=== PATIENT | male | born 1960 | race American Indian/Alaskan Native ===

== ENCOUNTER 2017-07-03 14:58 | Emergency (ER) | payer MEDICAID, OTHER ==
[2017-07-03 15:14] VITALS: BP 133/79; PULSE 85; RESP 16; TEMP 98.1; O2SAT 99; BMI 30.8
[2017-07-03] MEDS ORDERED: Naproxen 550 mg Tab PO STA (15:38)
[2017-07-03] MEDS ORDERED: Naproxen 550 mg Tab PO ONE (15:42)
--- NOTE | 2017-07-03 16:29 | RAD ---
PROCEDURE: Lumbar spine dated 07/03/2017. HISTORY: Status post fall with pain. COMPARISON: Correlation made with prior radiographs of the lumbar spine 02/21/2014. FINDINGS: BONES: No acute compression fractures no retropulsed fragments. Vertebral bodies exhibit normal stature. There is a mild levo- rotoscoliosis centered at approximately the L2-L3 level slightly increased from prior exam. Vertebral bodies otherwise exhibit normal alignment. Facets normally aligned. 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 DISC SPACES: Mild disc space narrowing seen on the right side at the L1-L2, L2-L3 and to a lesser degree L3-L4 levels in part due to the aforementioned scoliotic deformity. . Mild to moderate disc space narrowing L5-S1 level with endplate eburnation. Small anterolateral osteophyte formation seen at several levels. Facet joints also appear hypertrophic at L5-S1 through the L2-L3 levels in somewhat decreasing order of severity. OTHER FINDINGS: None. IMPRESSION: No acute fractures. Mild multilevel degenerative spondylosis with slight increased of the levo- rotoscoliosis. 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
--- NOTE | 2017-07-03 16:36 | RAD ---
PROCEDURE: Left hip dated 07/03/2017. HISTORY: Status post fall with pain. COMPARISON: Correlation made with concurrent radiographs of the lumbar spine FINDINGS: BONES: No evidence of acute displaced fracture nor dislocation. The osseous structures appear intact. Both femoral heads are appropriately located within the respective acetabula. JOINTS: Minimal spurring along the superolateral margins of the acetabular roofs. Joint spaces appear relatively preserved. SOFT TISSUES: Soft tissues appear grossly unremarkable. OTHER FINDINGS: Roofs. Re- demonstrated is a bony bridge extending from the lateral aspect of the right L5 transverse process extending to the superomedial aspect of the right iliac bone IMPRESSION: No evidence of acute displaced fracture nor dislocation. Consider additional imaging if symptoms persist or occult fracture suspected clinically
--- NOTE | 2017-07-03 16:36 | RAD ---
Indication: Pain status post fall Comparison: Chest x-ray performed 02/21/14 Findings: No acute displaced fracture or dislocation identified. Soft tissues appear unremarkable. Impression: No acute findings identified.
--- NOTE | 2017-07-03 16:47 | C.PDOC ---
History Of Present Illness Pt slipped and lost balance while going up stairs and fell on his left side. Denies LOC or head injury. - HPI Time Seen by Provider: 07/03/17 15:20 Chief Complaint (Nursing): Trauma History Per: Patient Injury Occurred (Timing): Just Before Arrival Location Of Injury: Left: Back (Lower), Hip, Shoulder Severity: Moderate Additional History Per: Prior Records - Fall Fall:Prior To Injury: Slipped Past Medical History Reviewed: Historical Data, Nursing Documentation, Vital Signs Vital Signs: Last Vital Signs Temp 98.1 F 07/03/17 15:14 Pulse 85 07/03/17 15:14 Resp 16 07/03/17 15:14 BP 133/79 07/03/17 15:14 Pulse Ox 99 07/03/17 15:14 - Medical History PMH: No Chronic Diseases Family History: States: Unknown Family Hx - Social History Hx Tobacco Use: No Hx Alcohol Use: No Hx Substance Use: No - Immunization History Hx Tetanus Toxoid Vaccination: No Hx Influenza Vaccination: No Hx Pneumococcal Vaccination: No Review Of Systems Except As Marked, All Systems Reviewed And Found Negative. Constitutional: Negative for: Fever, Weakness Cardiovascular: Negative for: Chest Pain Physical Exam - Physical Exam Appears: Non-toxic, No Acute Distress Skin: Normal Color, Warm, Dry Head: Atraumatic, Normacephalic Eye(s): bilateral: Normal Inspection, PERRL, EOMI Neck: Normal ROM, No Midline Cervical Tenderness, No Step Off Deformity, Supple Chest: Symmetrical, No Deformity Cardiovascular: Rhythm Regular Respiratory: Normal Breath Sounds, No Accessory Muscle Use Gastrointestinal/Abdominal: Soft, No Tenderness Back: No CVA Tenderness, Paraspinal Tenderness (left lower) Extremity: Normal ROM, Tenderness (around left scapula area and left hip area), No Deformity, No Swelling Pulses: Left Radial: Normal Neurological/Psych: Oriented x3, Normal Motor, Normal Sensation ED Course And Treatment O2 Sat by Pulse Oximetry: 99 Pulse Ox Interpretation: Normal - Other Rad LS spine x-rays X-Ray: Viewed By Me, Read By Radiologist Interpretation: IMPRESSION: No acute fractures. Mild multilevel degenerative spondylosis with slight increased of the levo- rotoscoliosis. 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 Left scapula x-rays X-Ray: Viewed By Me, Read By Radiologist Interpretation: Impression: No acute findings identified. Left hip x-rays X-Ray: Viewed By Me, Read By Radiologist Interpretation: IMPRESSION: No evidence of acute displaced fracture nor dislocation. Consider additional imaging if symptoms persist or occult fracture suspected clinically Reassessment Condition: Improved Disposition Counseled Patient/Family Regarding: Studies Performed, Diagnosis, Need For Followup, Rx Given - Disposition Disposition: HOME/ ROUTINE Disposition Time: 16:50 Condition: STABLE Additional Instructions: Follow up with your doctor for further evaluation and treatment and about your bony bridge. Return to the ER if you develop trouble walking, worsening of symptoms or if you have any other concerns. Prescriptions: Cyclobenzaprine [Cyclobenzaprine HCl] 10 mg PO TID PRN #15 tab PRN Reason: Muscle Spasm Naproxen [Naprosyn] 1 tab PO BID PRN #20 tab PRN Reason: Pain Instructions: Hip Contusion (ED) - Clinical Impression Clinical Impression: Contusion of left hip region, Low back pain, Contusion of left scapular region
== END 2017-07-03 16:58 | disposition home or self-care (01) ==
LOC: C.ER 14:58
DX: S70.02XA Contusion of left hip, initial encounter (principal); S40.012A Contusion of left shoulder, initial encounter; W10.9XXA Fall (on) (from) unspecified stairs and steps, initial encounter; M54.5 Low back pain